=== PATIENT | female | born 1990 | race Caucasian/White ===

== ENCOUNTER 2017-11-24 00:23 | Emergency (ER) | payer SELFPAY, OTHER | END 2017-11-24 05:50 | disposition left against medical advice (07) | LOC: FTE 00:23 | DX: Z53.21 Procedure and treatment not carried out due to patient leaving prior to being seen by health care provider (principal) ==

== ENCOUNTER 2018-06-30 01:55 | Emergency (ER) | payer SELFPAY ==
[2018-06-30] MEDS: LEVALBUTEROL (NEB) 1.25 MG/0.5 ML AMP HHN (02:40)
== END 2018-06-30 03:32 | disposition home or self-care (01) ==
LOC: FTE 01:55
DX: J45.901 Unspecified asthma with (acute) exacerbation (principal)
CPT/HCPCS: 94664; 99283-25

== ENCOUNTER 2018-09-21 04:27 | Emergency (ER) | payer SELFPAY | END 2018-09-21 07:04 | disposition left against medical advice (07) | LOC: FTE 04:27 | DX: Z53.21 Procedure and treatment not carried out due to patient leaving prior to being seen by health care provider (principal) ==

== ENCOUNTER → 2019-02-22 | Emergency (ER) | payer MEDICAID | END | disposition home or self-care (01) | LOC: FTE 07:17 | DX: T58.11XA Toxic effect of carbon monoxide from utility gas, accidental (unintentional), initial encounter (principal); J45.901 Unspecified asthma with (acute) exacerbation; X58.XXXA Exposure to other specified factors, initial encounter; Y92.009 Unspecified place in unspecified non-institutional (private) residence as the place of occurrence of the external cause | CPT/HCPCS: 71045; 99283-25 ==